=== PATIENT | female | born 1985 | race Two or more races ===

== ENCOUNTER → 2017-09-19 | Emergency (ER) | payer OTHER ==
[~2017-09-19] VITALS: Ht 167.6 cm; Wt 50.8 kg
== END | disposition home or self-care (01) ==
LOC: ER 01:09
DX: O20.8 Other hemorrhage in early pregnancy (principal); Z34.01 Encounter for supervision of normal first pregnancy, first trimester

== ENCOUNTER 2017-09-24 09:16 | Day surgery (SDC) | payer OTHER | END 2017-09-24 18:00 | disposition home or self-care (01) | LOC: CIR.AMB 09:16 | DX: O02.1 Missed abortion (principal) ==

== ENCOUNTER 2018-01-02 19:38 | Emergency (ER) | payer OTHER ==
[~2018-01-02] VITALS: Ht 167.6 cm; Wt 49.4 kg
[2018-01-02] MEDS ORDERED: PRENA1 TRUE CO1 EACH (20:53)
[2018-01-03] MEDS ORDERED: KETO10TA2 PO (02:12)
== END 2018-01-03 03:03 | disposition home or self-care (01) ==
LOC: ER 19:38
DX: N93.8 Other specified abnormal uterine and vaginal bleeding (principal)

== ENCOUNTER 2018-08-22 11:43 | Emergency (ER) | payer OTHER ==
[~2018-08-22] VITALS: Ht 167.6 cm; Wt 52.2 kg
[~2018-08-22 11:43] MED LIST: KETO10TA2 PO; PRENA1 TRUE CO1 EACH
== END 2018-08-22 19:57 | disposition home or self-care (01) ==
LOC: ER 11:43 → EDBD 12:03 → ER 12:03
DX: O03.9 Complete or unspecified spontaneous abortion without complication (principal)

== ENCOUNTER 2018-08-26 07:00 | Day surgery (SDC) | payer OTHER ==
[~2018-08-26] VITALS: Ht 167.6 cm; Wt 52.2 kg
--- NOTE | 2018-08-26 05:46 | NUR ---
SE RECIBE PTE ALERTA Y ORIENTADA LA CUAL REFIERE VENIR POR RASPE QUE LE REALIZARAN HERIBERTO EL JUDITH DE HOY. SE MIDEN S/V A PTE Y SE COLOCA EN AREA DE OBSERVACION.
--- NOTE | 2018-08-26 06:11 | NUR ---
SE ORIENTA A PTE SOBRE PROCESO DE VENOPUNCION, KISHOR DE MUESTRAS, ADMINISTRACION DE MED IV PTE REFIERE ENTENDER INF MARIO. SE MANTIENE PTE BAJO OBSERVACION RECIBIENDO TRATAMIENTO CON AREA DE VENOPUNCION PATENTE. EN ESPERA DE IR A OR.
--- NOTE | 2018-08-26 08:56 | NUR ---
PTE EVALUADA Y ADMITIDA POR EL A LOS SERVICIOS DEL SE ORIENTA SOBRE TRATAMIENTO MEDICO Y PROCESO DE4 ADMISION Y SE ENVIA FAMILIAR A PROCESAR LA ADMISION. PTE ALERTA, 0RIENTADA POR TIFFANIE CON IVFS PATENTE ANNETTE DE EDEMA Y ERITEMA. SE MANTIENE EN OBSERVACION Y PENDIENTE SUBIR A HEIDY DE OPERACIONES.
== END 2018-08-26 16:00 | disposition home or self-care (01) ==
LOC: CIR.AMB 07:00 → EDSTATUS 12:45 → SEC-K 16:00 → CIR.AMB 16:00 → SEC-K 08-27 12:14 → O/R 08-27 12:14 → SEC-K 09-01 07:35
DX: O02.1 Missed abortion (principal)

== ENCOUNTER 2023-05-15 20:23 | Emergency (ER) | payer OTHER ==
[~2023-05-15] VITALS: Ht 162.6 cm; Wt 68.0 kg
[2023-05-15] MEDS ORDERED: GUAIFENESIN 200 MG/10 ML BLIST.PACK PO ONE (21:15)
[2023-05-15 22:34] LABS: HEMOGLOBIN 13.8 g/dL (12.0-15.00); MEAN CELL VOLUME 94.5 fL (80.00-100.00); MEAN CORPUSCULAR HEMOGLOBIN 31.8 pg (27.00-32.0); MEAN CORPUSCULAR HGB CONC 33.6 g/dl (32.0-36.0); PLATELET COUNT 282 K/uL (150-450); RED BLOOD COUNT 4.34 M/uL (4.00-6.00); RED CELL DISTRIBUTION WIDTH 13.6 % (11.5-14.5)
== END 2023-05-16 00:16 | disposition home or self-care (01) ==
LOC: ER 20:23
PROVIDERS: General Practice
DX: U07.1 COVID-19 (principal); Z88.2 Allergy status to sulfonamides

== ENCOUNTER 2023-06-09 03:04 | Emergency (ER) | payer OTHER ==
[~2023-06-09] VITALS: Ht 165.1 cm; Wt 61.2 kg
[2023-06-09] MEDS ORDERED: PROMETHAZINE HCL 50 MG/ML AMPUL IM STA (04:08)
[2023-06-09] MEDS ORDERED: FAMOTIDINE/PF 20 MG/2 ML VIAL IV PUSH STA (04:08)
[2023-06-09] MEDS ORDERED: 0.9 % SODIUM CHLORIDE 1,000 ML IV ONE (04:15)
[2023-06-09 04:33] LABS: HEMATOCRIT 40.6 % (36.0-45.00); HEMOGLOBIN 13.9 g/dL (12.0-15.00); MEAN CELL VOLUME 92.9 fL (80.00-100.00); MEAN CORPUSCULAR HEMOGLOBIN 31.8 pg (27.00-32.0); MEAN CORPUSCULAR HGB CONC 34.2 g/dl (32.0-36.0); PLATELET COUNT 293 K/uL (150-450); RED BLOOD COUNT 4.37 M/uL (4.00-6.00); RED CELL DISTRIBUTION WIDTH 13.5 % (11.5-14.5)
[2023-06-09 04:53] LABS: ALBUMIN 3.9 gm/dL (3.4-5.0); BILIRUBIN TOTAL 0.56 mg/dL (0.3-1.2); CALCIUM 9.4 mg/dL (8.5-10.1); CREATININE SERUM 0.7 mg/dL (0.55-1.02); GFR 93.16; GLOBULINA 3.7 G/DL (2.4-3.5); POTASSIUM 3.6 mEq/L (3.5-5.1); TOTAL PROTEIN 7.6 gm/dL (6.4-8.2)
[2023-06-09 06:03] LABS: URINE APPEARANCE Cloudy; URINE BILIRRUBIN Negative (NEGATIVE); URINE BLOOD Negative; URINE COLOR Yellow; URINE GLUCOSE Negative (NEGATIVE); URINE LEUKOCYTE Negative; URINE NITRATE Negative; URINE PROTEIN 30 (NEGATIVE)
[2023-06-09 06:07] LABS: URINE EPITHELIAL CELLS 27.5 uL (0.0-38.8); URINE RBC 81.3 uL (0.0-20.8); URINE WBC 17.6 uL (0.0-23.2)
[2023-06-09] MEDS ORDERED: PEPCID40 MG PO (08:00)
[2023-06-09] MEDS ORDERED: ZOFRAN8 MG PO (08:00)
[2023-06-09] MEDS ORDERED: ZITHROMAX500 MG PO ×2 (08:01)
== END 2023-06-09 08:31 ==
LOC: ER 03:04
PROVIDERS: General Practice
DX: J02.9 Acute pharyngitis, unspecified (principal); R53.81 Other malaise; Z88.2 Allergy status to sulfonamides

== ENCOUNTER 2024-02-23 22:31 | Emergency (ER) | payer OTHER ==
[~2024-02-23] VITALS: Ht 167.6 cm; Wt 64.4 kg
[~2024-02-23 22:31] MED LIST changes: +PEPCID40 MG PO; +ZITHROMAX500 MG PO; +ZOFRAN8 MG PO
[2024-02-23 22:34] VITALS: BP 139/90; O2SAT 98
[2024-02-24] MEDS ORDERED: ACETAMINOPHEN 500 MG GEL..CAP PO STA (00:50)
[2024-02-24] MEDS ORDERED: GUAIFENESIN 200 MG/10 ML BLIST.PACK PO STA (00:51)
[2024-02-24] MEDS ORDERED: DIPHENHYDRAMINE HCL 12.5 MG/5 ML BLIST.PACK PO STA (00:51)
[2024-02-24 01:27] LABS: HEMATOCRIT 40.6 % (36.0-45.00); HEMOGLOBIN 14.1 g/dL (12.0-15.00); MEAN CELL VOLUME 93.3 fL (80.00-100.00); MEAN CORPUSCULAR HEMOGLOBIN 32.4 pg (27.00-32.0); MEAN CORPUSCULAR HGB CONC 34.7 g/dl (32.0-36.0); PLATELET COUNT 290 K/uL (150-450); RED BLOOD COUNT 4.35 M/uL (4.00-6.00); RED CELL DISTRIBUTION WIDTH 13.7 % (11.5-14.5)
[2024-02-24 01:50] LABS: PH,URINE 6.5 (5.0-8.0); URINE APPEARANCE Clear; URINE BILIRRUBIN Negative (NEGATIVE); URINE BLOOD Negative; URINE COLOR Yellow; URINE GLUCOSE Negative (NEGATIVE); URINE KETONE Negative (NEGATIVE); URINE LEUKOCYTE Trace; URINE NITRATE Negative; URINE PROTEIN Negative (NEGATIVE); URINE UROBILINOGEN 0.2 E.U./dl
[2024-02-24 01:54] LABS: URINE BACTERIA 1223.4 uL (0.0-1933); URINE EPITHELIAL CELLS 72.4 uL (0.0-38.8); URINE RBC 6.5 uL (0.0-20.8); URINE WBC 41.5 uL (0.0-23.2)
[2024-02-24] MEDS ORDERED: PHENAGIL TABLE1 EACH PO (03:36)
== END 2024-02-24 03:55 | disposition home or self-care (01) ==
LOC: ER 22:33
PROVIDERS: General Practice
DX: J02.9 Acute pharyngitis, unspecified (principal); R53.83 Other fatigue; Z88.2 Allergy status to sulfonamides; Z20.822 Contact with and (suspected) exposure to COVID-19

== ENCOUNTER 2024-12-14 10:34 | Emergency (ER) | payer OTHER ==
[~2024-12-14] VITALS: Ht 167.6 cm; Wt 70.3 kg
[~2024-12-14 10:34] MED LIST changes: +PHENAGIL TABLE1 EACH PO
[2024-12-14] MEDS ORDERED: GUAIFENESIN/DEXTROMETHORPHAN 100MG/10ML BLIST.PACK PO STA (11:29)
[2024-12-14] MEDS ORDERED: CETIRIZINE HCL 5 MG/5 ML ML PO STA (11:29)
[2024-12-14] MEDS ORDERED: DEXAMETHASONE SODIUM PHOSPHATE 4 MG/ML VIAL IM STA (11:29)
[2024-12-14] MEDS ORDERED: ACETAMINOPHEN 500 MG GEL..CAP PO STA (11:29)
[2024-12-14] MEDS ORDERED: ACETAMINOPHEN 500 MG GEL..CAP PO ONE (12:05)
[2024-12-14] MEDS ORDERED: GUAIFEN/DEXTROMETHORPHAN/PE 10 ML BLIST.PACK PO ONE (12:06)
[2024-12-14] MEDS ORDERED: DEXAMETHASONE SODIUM PHOSPHATE 4 MG/ML VIAL ONE (12:06)
[2024-12-14] MEDS ORDERED: CETIRIZINE HCL 5MG/5ML BLIST.PACK PO ONE ×2 (12:07→12:11)
[2024-12-14 12:58] LABS: BASO % 0.7 % (0.1-1.2); EOS # 0.16 (0.04-0.54); EOS % 1.2 % (0.7-7.0); LYMPH # 2.31 (1.18-3.74); LYMPH % 17.4 % (19.3-53.1); MEAN PLATELET VOLUME 9.60 fl (9.4-12.4); MONO # 0.93 (0.24-0.82); MONO % 7.0 % (4.7-12.5); NEUT # 9.70 (1.56-6.13); NEUT % 73.2 % (34.0-71.1); RED CELL DISTRIBUTION WIDTH 12.8 % (11.6-14.4)
[2024-12-14 13:16] LABS: COVID-19 AG NEGATIVE (NEGATIVE)
[2024-12-14 13:19] LABS: BUN CREA RATIO 25.0 (7.0-25.0); CREATININE SERUM 0.63 mg/dL (0.55-1.02); GFR 104.66; GLUCOSE FASTING 96.0 mg/dL (65-100); OSMOLALITY SERUM 286.0 MOSM/KG (275-295)
[2024-12-14] MEDS ORDERED: ZITHROMAX500 MG PO (13:35)
[2024-12-14] MEDS ORDERED: ACETAMINOPHEN500 M1 PO (13:39)
[2024-12-14] MEDS ORDERED: ALL DAY ALLERGY10 M3 PO (13:39)
[2024-12-14] MEDS ORDERED: MUCINEX DM ER1 EAC1 PO (13:39)
[2024-12-14] MEDS ORDERED: CEFTRIAXONE SODIUM 1,000 MG VIAL IM STA (13:40)
[2024-12-14] MEDS ORDERED: LIDOCAINE HCL 1% 10ML VIAL ONE (14:09)
[2024-12-14] MEDS ORDERED: CEFTRIAXONE SODIUM 1,000 MG VIAL ONE (14:10)
== END 2024-12-14 14:23 | disposition home or self-care (01) ==
LOC: ER 10:39
PROVIDERS: General Practice
DX: J06.9 Acute upper respiratory infection, unspecified (principal); R05.9 Cough, unspecified; R50.9 Fever, unspecified; Z20.822 Contact with and (suspected) exposure to COVID-19; Z88.2 Allergy status to sulfonamides

== ENCOUNTER 2025-02-22 17:40 | Emergency (ER) | payer OTHER ==
[~2025-02-22] VITALS: Ht 165.1 cm; Wt 70.3 kg
[~2025-02-22 17:40] MED LIST changes: +ACETAMINOPHEN500 M1 PO; +ALL DAY ALLERGY10 M3 PO; +MUCINEX DM ER1 EAC1 PO
[2025-02-22] MEDS ORDERED: FAMOTIDINE/PF 20 MG/2 ML VIAL IV STA (18:02)
[2025-02-22] MEDS ORDERED: ONDANSETRON HCL 2 MG/ML VIAL IV STA (18:03)
[2025-02-22] MEDS ORDERED: ACETAMINOPHEN 500 MG GEL..CAP PO STA (18:03)
[2025-02-22] MEDS ORDERED: GUAIFENESIN 200 MG/10 ML BLIST.PACK PO STA (18:03)
[2025-02-22] MEDS ORDERED: DEXAMETHASONE SODIUM PHOSPHATE 4 MG/ML VIAL IM STA (18:03)
[2025-02-22] MEDS ORDERED: ONDANSETRON HCL 2 MG/ML VIAL ONE (18:11)
[2025-02-22] MEDS ORDERED: ACETAMINOPHEN 500 MG GEL..CAP PO ONE (18:11)
[2025-02-22] MEDS ORDERED: DEXAMETHASONE SODIUM PHOSPHATE 4 MG/ML VIAL ONE (18:11)
[2025-02-22] MEDS ORDERED: GUAIFENESIN 200 MG/10 ML BLIST.PACK PO ONE (18:12)
[2025-02-22] MEDS ORDERED: FAMOTIDINE/PF 20 MG/2 ML VIAL ONE (18:12)
[2025-02-22 18:50] LABS: BASO % 0.6 % (0.1-1.2); EOS # 0.07 (0.04-0.54); EOS % 0.6 % (0.7-7.0); LYMPH # 0.67 (1.18-3.74); LYMPH % 5.8 % (19.3-53.1); MEAN PLATELET VOLUME 9.30 fl (9.4-12.4); MONO # 0.87 (0.24-0.82); MONO % 7.5 % (4.7-12.5); NEUT # 9.82 (1.56-6.13); NEUT % 85.2 % (34.0-71.1); RED CELL DISTRIBUTION WIDTH 12.6 % (11.6-14.4)
[2025-02-22 19:09] LABS: COVID-19 AG NEGATIVE (NEGATIVE)
[2025-02-22 19:23] LABS: BUN CREA RATIO 13.0 (7.0-25.0); CREATININE SERUM 0.92 mg/dL (0.55-1.02); GFR 67.61; GLUCOSE FASTING 116.0 mg/dL (65-100); OSMOLALITY SERUM 282.0 MOSM/KG (275-295)
[2025-02-22] MEDS ORDERED: INTESTINEX680 M1 PO (19:58)
[2025-02-22] MEDS ORDERED: ACETAMINOPHEN500 M2 PO (19:58)
[2025-02-22] MEDS ORDERED: ONDANSETRON ODT4 MG PO (19:58)
[2025-02-22] MEDS ORDERED: AZITHROMYCIN500 MG PO (19:58)
[2025-02-22] MEDS ORDERED: PEPCID AC20 MG PO (19:58)
== END 2025-02-22 20:21 | disposition home or self-care (01) ==
LOC: ER 17:41
PROVIDERS: General Practice
DX: B34.9 Viral infection, unspecified (principal); J06.9 Acute upper respiratory infection, unspecified; R51.9 Headache, unspecified; R05.8 Other specified cough; Z20.822 Contact with and (suspected) exposure to COVID-19; Z88.2 Allergy status to sulfonamides

== ENCOUNTER 2025-02-24 19:11 | Emergency (ER) | payer OTHER ==
[~2025-02-24] VITALS: Ht 165.1 cm; Wt 70.3 kg
[~2025-02-24 19:11] MED LIST changes: +ACETAMINOPHEN500 M2 PO; +AZITHROMYCIN500 MG PO; +INTESTINEX680 M1 PO; +ONDANSETRON ODT4 MG PO; +PEPCID AC20 MG PO
[2025-02-24] MEDS ORDERED: GUAIFENESIN 200 MG/10 ML BLIST.PACK PO ONE (22:45)
[2025-02-24] MEDS ORDERED: IPRATROPIUM/ALBUTEROL SULFATE 3 ML AMPUL.NEB IH ONE (22:45)
[2025-02-25 00:47] LABS: BASO % 0.6 % (0.1-1.2); EOS # 0.04 (0.04-0.54); EOS % 0.5 % (0.7-7.0); LYMPH # 1.83 (1.18-3.74); LYMPH % 23.3 % (19.3-53.1); MEAN PLATELET VOLUME 9.60 fl (9.4-12.4); MONO # 0.86 (0.24-0.82); MONO % 10.9 % (4.7-12.5); NEUT # 5.05 (1.56-6.13); NEUT % 64.3 % (34.0-71.1); RED CELL DISTRIBUTION WIDTH 12.9 % (11.6-14.4)
[2025-02-25 01:05] LABS: BUN CREA RATIO 19.0 (7.0-25.0); CREATININE SERUM 0.79 mg/dL (0.55-1.02); GFR 80.6; GLUCOSE FASTING 85.0 mg/dL (65-100); OSMOLALITY SERUM 281.0 MOSM/KG (275-295)
[2025-02-25 01:16] LABS: COVID-19 AG NEGATIVE (NEGATIVE)
[2025-02-25] MEDS ORDERED: MUCINEX FAST-M180 M2 PO (02:06)
[2025-02-25] MEDS ORDERED: IPRAT-ALBUT 0.5-3 ML IH (02:06)
== END 2025-02-25 04:03 | disposition home or self-care (01) ==
LOC: ER 19:11
PROVIDERS: Student in an Organized Health Care Education/Training Program
DX: B34.9 Viral infection, unspecified (principal); J20.9 Acute bronchitis, unspecified; R05.8 Other specified cough; R07.89 Other chest pain; Z20.822 Contact with and (suspected) exposure to COVID-19; Z88.2 Allergy status to sulfonamides